=== PATIENT | male | born 1985 | race Caucasian/White ===

== ENCOUNTER 2019-11-04 02:45 | Emergency (ER) | payer SELFPAY ==
[2019-11-04] MEDS ORDERED: NALOXONE HCL INJ 1 MG/ML SYG ONE ×2 (02:49→03:12)
[2019-11-04] MEDS ORDERED: NALOXONE HCL INJ 1 MG/ML SYG IV ONE ×3 (02:50→03:43)
[2019-11-04] MEDS ORDERED: SUCCINYLCHOLINE CHLORIDE 200 MG/10 ML VIAL ONE (02:53)
[2019-11-04] MEDS: NALOXONE HCL INJ 0.4 MG/ML VIAL IV ONE ×3 (02:54→05:09)
[2019-11-04] MEDS ORDERED: SODIUM CHLORIDE 0.9% (FLUSH) 10 ML SYG IV PRN (02:56)
[2019-11-04] MEDS ORDERED: SUCCINYLCHOLINE CHLORIDE 200 MG/10 ML VIAL IV ONE (02:57)
[2019-11-04] MEDS ORDERED: ETOMIDATE INJECTION 2 MG/ML 20ML VIAL IV ONE (02:57)
[2019-11-04] MEDS ORDERED: SODIUM CHLORIDE 0.9% 1000ML 1,000 ML IVS ONE ×2 (02:57→03:53)
[2019-11-04] MEDS ORDERED: SODIUM CHLORIDE 0.9% 500ML 500 ML ONE (03:05)
[2019-11-04] MEDS ORDERED: SODIUM CHL 0.9% 250ML (AVIVA) 0 ML IVPB ONE (03:10)
[2019-11-04] MEDS ORDERED: SODIUM CHLORIDE 0.9% 250ML 250 ML ONE (03:12)
[2019-11-04] MEDS ORDERED: SODIUM CHLORIDE 0.9% 1000ML 2,000 ML ONE (03:16)
--- NOTE | 2019-11-04 03:21 | ED.PDOC ---
History of Present Illness - General Chief Complaint: Drug or Alcohol Abuse Stated Complaint: ovedrdose, unresponsive Time Seen by Provider: 11/04/19 02:56 Source: patient, EMS - History of Present Illness Initial Comments: 34 yo male with PMH of drug/opioid abuse who is bib EMS from a friend's house for cc of unresponsive and trouble breathing. Patient's friends reported that he came in through the front door of the house and was acting lethargic and confused and then collapsed to the ground and was having difficulty breathing. Upon EMS arrival patient had no or very little spontaneous respiratory effort and was noted to have pinpoint bilateral pupils and hypoxic. Assisted bagging and supplemental oxygen was given immediately in addition to Narcan 4 mg IV in route to which patient responded and began spontaneously breathing. Upon ED arrival was given another total of 4 mg IV while preparations were made to RSI and then woke up and was able to converse with myself and staff. Reported that he snorted 1 tablet of oxycodone 30 mg this evening but denies any other drugs used. Denies any complaints or pain. He does report a history of opioid abuse in the past, states that "I usually snort 3 to 4 tablets at a time without issue." Later on pt reported to ED staff he actually snorted 3-4 tablets of oxycodone 30 mg tablets earlier this evening. Allergies/Adverse Reactions: Allergies NO KNOWN ALLERGY Allergy (Verified 11/04/19 03:08) Review of Systems - Review of Systems Review of Systems: 11/04/19 03:32 as per HPI All other Systems: Reviewed and Negative Family Medical History - Family History Mother Family History: Unknown Physical Exam - Physical Exam General Appearance: Other - initial GCS 8 ([id number]), on arrival very lethargic with poor respiratory effort, minimal response to sternal rub Eye Exam: bilateral other - BL pinpoint pupils Ears, Nose, Throat: normal ENT inspection, normal pharynx Neck: full range of motion, supple, normal inspection Respiratory: lungs clear, normal breath sounds, no accessory muscle use, other - poor spontaneous respiratory effort on arrival Cardiovascular/Chest: normal peripheral pulses, regular rate, rhythm, no edema, no gallop, no JVD, no murmur Peripheral Pulses: radial,right: 2+, radial,left: 2+ Gastrointestinal/Abdominal: non tender, soft, no organomegaly Back Exam: normal inspection, no CVA tenderness, no vertebral tenderness Extremity: normal range of motion, non-tender, normal inspection, no pedal edema, no calf tenderness, normal capillary refill Neurologic: probe operator II-XII nml as tested, no motor/sensory deficits Skin Exam: normal color, warm/dry Progress - Progress Progress: 11/04/19 03:34 Opioid overdose -Reported as snorting of oxycodone 30 mg tablet earlier this evening, denies any other drug use, appears accidental in nature without intention of self-harm or suicide -Consider also other toxicity, ACS, seizure, metabolic derangements, other -Continue supportive care, Narcan pushes as needed -obtain EKG, CXR, CBC, CMP, tox screens, cardiac work-up -Spoke with Dr. Crowe at [facility] ED who accepts patient for ED to ED transfer for accidental recreational opioid overdose, will go via helicopter 11/04/19 03:44 -Pt remains stable, some difficulty in arousing to verbal stimuli, breathing well, vitals remain stable. Will give another dose of Narcan 1 mg IV (now total of 9 mg IV altogether). Continue frequent reassessments. -CXR reveals mild perihilar BL infiltrates. WBC 8,500 with 39% segs, 48% lymphs, lactate 3.4 (suspect 2/2 acute respiratory distress/drug overdose rather than sepsis/infectious etiology). Salicylate/Tylenol/Ethanol levels wnl. Blood cx's drawn and will begin broad-spectrum IV Abx with Rocephin 1 g IV for question of PNA. 11/04/19 04:46 -Pt with improving alertness, remains stable. Upon helicopter arrival, he refused transport via helicopter. Thus, EMS was called for transfer and pt was wanting to decline all further care and leave. However, myself and other ED staff and local law enforcement spoke with the pt at great length of the dangers of going home, and I also question his judgment given his current intoxication level. He is finally agreeable to be transferred via ground EMS in stable condition. Tera Pickett MD Billing #[id number] 11/04/19 02:56 IV Care:Saline Lock per Protoc QSHIFT Telemetry Q4H URINE DRUG SCREEN, 7 ASSAY Stat Sodium Chloride 0.9% (Flush) [Saline Flush Syringe] 10 ml IV PRN PRN URINALYSIS Stat 11/04/19 03:00 EKG STAT 11/04/19 03:52 BLOOD CULTURE Stat 11/04/19 03:53 Sodium Chloride 0.9% 1000ML [Ns 1000 ml] 1,000 ml IVS ONCE 11/04/19 03:55 Catheter:Gerard QSHIFT 11/04/19 04:48 Ondansetron Inj [Zofran Inj] 4 mg IV ONCE ONE Laboratory Results - last 24 hr 11/04/19 11/04/19 11/04/19 03:10 03:10 03:10 WBC 8.5 RBC 4.97 Hgb 14.7 Hct 44.8 MCV 90.3 MCH 29.6 MCHC 32.8 L RDW 15.6 H Plt Count 147 MPV 9.6 Absolute Neuts (auto) 3.30 Absolute Lymphs (auto) 4.10 H Absolute Monos (auto) 0.90 H Absolute Eos (auto) 0.20 Absolute Basos (auto) 0.10 Neutrophils % 39.0 L Lymphocytes % 48.0 Monocytes % 10.0 H Eosinophils % 2.2 Basophils % 0.8 PT 10.2 INR 1.03 PTT (SP) 23.7 Sodium 138 Potassium 3.7 Chloride 104 Carbon Dioxide 24 Anion Gap 13.7 BUN 27 H Creatinine 1.17 BUN/Creatinine Ratio 23.1 H Random Glucose 196 H Serum Osmolality 286.2 Lactic Acid Calcium 8.6 Total Bilirubin 0.6 AST 40 ALT 54 Alkaline Phosphatase 79 Creatine Kinase 175 H CK-MB (CK-2) 2.3 CK-MB (CK-2) % Not Reportable Troponin I < 0.02 Serum Total Protein 7.2 Albumin 4.0 Globulin 3.2 Albumin/Globulin Ratio 1.3 Salicylates Acetaminophen < 10.0 L Ethyl Alcohol 11/04/19 11/04/19 03:10 03:10 WBC RBC Hgb Hct MCV MCH MCHC RDW Plt Count MPV Absolute Neuts (auto) Absolute Lymphs (auto) Absolute Monos (auto) Absolute Eos (auto) Absolute Basos (auto) Neutrophils % Lymphocytes % Monocytes % Eosinophils % Basophils % PT INR PTT (SP) Sodium Potassium Chloride Carbon Dioxide Anion Gap BUN Creatinine BUN/Creatinine Ratio Random Glucose Serum Osmolality Lactic Acid 3.4 H* Calcium Total Bilirubin AST ALT Alkaline Phosphatase Creatine Kinase CK-MB (CK-2) CK-MB (CK-2) % Troponin I Serum Total Protein Albumin Globulin Albumin/Globulin Ratio Salicylates Acetaminophen Ethyl Alcohol < 5.40 - EKG/XRAY/CT EKG: Sinus - NSR, HR, 90, no ST elevations, questionable Q waves in anterior leads indicative of possible old PA, right axis deviation, intervals normal, no prior EKG for comparison XRAY: chest - BL perihilar opacities concerning for possible infiltrate or vascular congestion Departure - Departure Clinical Impression: Opioid overdose Qualifiers: Encounter type: initial encounter Injury intent: undetermined intent Qualified Code(s): T40.2X4A - Poisoning by other opioids, undetermined, initial encounter Time of Disposition: 03:31 Disposition: Transfer to Hospital Condition: Serious Departure Forms: ED Discharge - Pt. Copy, Patient Portal Self Enrollment Critical Care Note - Critical Care Note Total Time (mins): 45 Comments: Critical Care Time: Upon my evaluation, this patient had a high probability of life-threatening deterioration due to respiratory distress, opioid overdose, which required my direct attention, intervention, and management. I have provided 45 minutes of critical care time exclusive of separately billable procedures. My time included: direct patient care, review of labs and radiology, obtaining history from and counseling the patient, discussion with consultants and/or other medical personnel, documentation, and monitoring for potential decompensation. Transfer to Outside Facility - Transfer Information Decision to Transfer Date: 11/04/19 Decision to Transfer Time: 03:31 Reason for Transfer: ICU Accepting Provider:: Dr. Crowe Accepting Facility: [facility]
--- NOTE | 2019-11-04 03:22 | RAD ---
EXAM: Single view chest. INDICATION: Overdose. COMPARISON: Chest x-ray: None. FINDINGS: The lungs are underinflated with perihilar opacities. The heart is normal in size. There is no pneumothorax or pleural effusion. The bones are unremarkable. IMPRESSION: Underinflated lungs with perihilar opacities, which may represent vascular congestion or pneumonia. Electronically signed by: Freddie Roberts MD 11/04/2019 3:21 AM CDT
[2019-11-04 03:59] VITALS: TEMP 96.9
[2019-11-04] MEDS ORDERED: cefTRIAXone SODIUM 1 GM in SODIUM CHL 0.9% 50ML MIN-BAG+ 50 ML IVPB ONE (04:10)
[2019-11-04 04:34] VITALS: BP 119/93; O2SAT 96
[2019-11-04] MEDS ORDERED: ONDANSETRON INJ 4 MG/2 ML VIAL IV ONE (04:48)
== END 2019-11-04 05:00 | disposition short-term general hospital (02) ==
LOC: ER 02:45
DX: T40.2X4A Poisoning by other opioids, undetermined, initial encounter (principal); Y92.9 Unspecified place or not applicable
CPT/HCPCS: 71045; 80053; 80320; 80329; 82550; 82553; 83605; 84484; 85025; 85610; 85730; 87040; 93005; J0330; J0696; J2310; J2405; J7030; J7040; J7050